=== PATIENT | female | born 1950 | race African-American/Black ===

== ENCOUNTER 2016-03-14 09:05 | Outpatient (CLI) | payer MEDICARE | END 2016-03-14 09:06 | disposition home or self-care (01) | LOC: NAV LAB 09:05 | PROVIDERS: ATTEND Family Medicine | DX: Z11.59 Encounter for screening for other viral diseases (principal) | CPT/HCPCS: 36415; 86803 ==

== ENCOUNTER 2017-05-21 20:26 | Emergency (ER) | payer MEDICARE ==
[2017-05-21] MEDS ORDERED: AMOXicillin 250 MG CAP ONE (20:48)
== END 2017-05-21 20:54 | disposition home or self-care (01) ==
LOC: NAV ERS 20:26
DX: J06.9 Acute upper respiratory infection, unspecified (principal); I10 Essential (primary) hypertension; M19.90 Unspecified osteoarthritis, unspecified site; F31.9 Bipolar disorder, unspecified; F17.210 Nicotine dependence, cigarettes, uncomplicated; Z79.891 Long term (current) use of opiate analgesic; Z79.899 Other long term (current) drug therapy
CPT/HCPCS: 99283

== ENCOUNTER 2017-06-02 12:05 | Outpatient (CLI) | payer MEDICARE ==
--- NOTE | 2017-06-02 13:34 | RAD ---
LEFT KNEE RADIOGRAPHS 4 VIEWS: DATE: 06/02/17. PROVIDED CLINICAL HISTORY: Left knee pain. FINDINGS: Tricompartmental osteophyte formation. Joint spaces appear preserved. Moderate knee joint capsular distention. No evidence for fracture. IMPRESSION: Left knee degenerative change. POS: [facility]
--- NOTE | 2017-06-02 13:48 | RAD ---
RIGHT KNEE RADIOGRAPHS 4 VIEWS: DATE: 06/02/17. PROVIDED CLINICAL HISTORY: Right knee pain. FINDINGS: The lateral view is oblique, limiting evaluation. Tricompartmental osteophyte formation is noted. T here is medial femorotibial joint space loss. Moderate knee joint capsular distention. No evidence for fracture. IMPRESSION: Right knee degenerative change. POS: [facility]
== END 2017-06-02 12:06 | disposition home or self-care (01) ==
LOC: NAV RAD 12:05
PROVIDERS: ATTEND Family Medicine
DX: M17.0 Bilateral primary osteoarthritis of knee (principal); M06.4 Inflammatory polyarthropathy

== ENCOUNTER 2018-02-10 18:29 | Emergency (ER) | payer MEDICARE ==
[2018-02-10] MEDS ORDERED: Adacel (T-DAP) 0.5 ML SYRINGE ONE (19:13)
[2018-02-10] MEDS ORDERED: HYDROcodone/Acetaminophen 5/325 mg Tablet ONE (19:13)
== END 2018-02-10 19:28 | disposition home or self-care (01) ==
LOC: NAV ERS 18:29
DX: S91.115A Laceration without foreign body of left lesser toe(s) without damage to nail, initial encounter (principal); S81.812A Laceration without foreign body, left lower leg, initial encounter; I10 Essential (primary) hypertension; M19.90 Unspecified osteoarthritis, unspecified site; F17.210 Nicotine dependence, cigarettes, uncomplicated; Z79.899 Other long term (current) drug therapy; Z79.891 Long term (current) use of opiate analgesic; Z79.51 Long term (current) use of inhaled steroids; W25.XXXA Contact with sharp glass, initial encounter
CPT/HCPCS: 90471; 90715